=== PATIENT | male | born 1965 | race Caucasian/White ===

== ENCOUNTER 2025-01-16 16:27 | Emergency (ER) | payer OTHER, SELFPAY ==
[2025-01-16 16:30] VITALS: BP 147/109
[2025-01-16 16:57] LABS: % Basophils 0.5 % (0-2); % Eosinophils 1.8 % (0-6); % Immature Granulocytes 0.3 % (0-0.5); % Monocytes 10.1 % (1.7-9.3); % Neutrophils 61.3 % (42.2-75.2); Absolute Basophils 0.1 10^3/uL (0-0.2); Absolute Eosinophils 0.2 10^3/uL (0-0.7); Absolute Lymphocytes 2.4 10^3/uL (1.2-3.4); Absolute Neutrophils 5.7 10^3/uL (1.4-6.5); Hemoglobin 14.3 g/dL (13.0-18.0); Mean Corp Hgb Conc. 35.8 g/dL (33.0-37.0); Mean Corpuscular Hgb 30.9 pg (27.0-31.0); Mean Corpuscular Volume 86.4 fL (80.0-94.0); Mean Platelet Volume 9.7 fL (7.4-10.4); Nucleated Red Blood Cells % 0 % (-); Platelet Count 319 10^3/uL (130-400); Red Blood Cell Count 4.63 10^6/uL (4.70-6.10); Red Cell Dist. Width 12.7 % (11.5-14.5); Urine Albumin Negative (Neg - Trace); Urine Bilirubin Negative (Negative); Urine Character Clear (Clear); Urine Color Yellow; Urine Glucose Negative (Negative); Urine Ketone Negative (Negative); Urine Leukocyte Negative (Negative); Urine Nitrite Negative (Negative); Urine Occult Blood 2+ (Negative); Urine Urobilinogen Negative (Neg - 1+); White Blood Cell Count 9.4 10^3/uL (4.8-10.8)
[2025-01-16 17:11] LABS: ALT (SGPT) 32 U/L (0-50); AST (SGOT) 27 U/L (17-59); Albumin 4.1 g/dl (3.5-5.0); Alkaline Phosphatase 65 U/L (38-126); Blood Urea Nitrogen 16 mg/dl (9-20); Carbon Dioxide 27 mmol/L (22-30); Chloride 101 mmol/L (98-107); Glucose 178 mg/dl (70-99); Potassium 3.4 mmol/L (3.5-5.1); Sodium 139 mmol/L (135-145); Total Bilirubin 0.8 mg/dl (0.2-1.3); Total Protein 7.1 g/dl (6.3-8.2); eGFR > 60.00
--- NOTE | 2025-01-16 17:20 | ED.GENMED ---
History of Present Illness
General
Chief Complaint: Flank Pain
Source: patient
Exam Limitations: none
Time Seen by Provider: 01/16/25 17:13
Nursing documentation reviewed up to this point in time: agreed with
History of Present Illness
History of Present Illness:
59-year-old male with history of Hernandez, kidney stones, presents with severe right flank pain, which started an hour ago, he is moaning and groaning, denies fever or chills.
Past History
Past History
ED Past Medical History: Other (Fatty liver splenomegaly kidney stones)
ED Past Surgical History: Urological
Social History
Tobacco: Non-smoker
Alcohol: None
Drug: None
Personal:
Living: with family
Employment: Employed
Family History
Family History: Hypertension
Review of Systems
Review of Systems
Allergies reviewed?: Yes
All Other Systems: ROS reviewed and negative except as documented in HPI and ROS
Constitutional: Denies fever or chills
Respiratory: Denies trouble breathing
Cardiac: Denies chest pain
ABD/GI: Reports nausea; Denies abdominal pain, vomiting or diarrhea
: Reports flank pain (Right); Denies dysuria or difficulty voiding
Musculoskeletal: Reports no symptoms
Skin: Reports no symptoms
Neurological: Reports no symptoms
Phy Exam
Physical Exam
Physical Exam:
GENERAL: Acute distress due to right flank pain A&Ox3.
CONSTITUTIONAL: Afebrile.
EYES: clear, conjunctivae normal
ENMT: moist mucus membranes
RESPIRATORY: Regular respirations, nonlabored, lungs clear.
CARDIOVASCULAR: Regular rate and rhythm, no murmurs, no rubs.
GI: Soft, nontender, normal BS
MUSCULOSKELETAL: Moves with ease. Well perfused.
SKIN: Warm, dry, pale
PSYCH: Anxious mood and affect. Well kept, interactive and appropriate
NEUROLOGIC: Awake, alert and oriented. No focal neurological deficits
Course
Orders/Labs/Results
Orders:
Orders
01/16/25 16:48
Complete Blood Count/With Diff Urgent
Comprehensive Metabolic Panel Urgent
Urinalysis Reflex To Culture Urgent
Date Specimen was Collected: 01/16/25
Time Specimen was Collected: 16:35
Urine Microscopic Reflex Cult Urgent
01/16/25 17:20
0.9% Sodium Chloride 1000 ml [Nss] 1,000 ml IV BOLUS
HYDROmorphone [Dilaudid] 1 mg IV NOW STA
Ondansetron Injectable [Zofran] 4 mg IV NOW STA
01/16/25 18:05
Ketorolac [Toradol] 15 mg IV NOW STA
Tamsulosin [Flomax] 0.4 mg PO NOW STA
01/16/25 18:06
CT Abd/pel Without Iv Or Oral Urgent
Comment:
Reason For Exam: R flank pain
01/16/25 20:22
Ketorolac [Toradol] 15 mg IV NOW STA
01/16/25 20:30
Ondansetron Injectable [Zofran] 4 mg IV NOW STA
Abnormal Lab Results
01/16/25
16:48
RBC 4.63 L 10^6/uL
(4.70-6.10)
Absolute Monos (auto) 1.0 H 10^3/uL
(0.1-0.6)
Monocytes % 10.1 H %
(1.7-9.3)
Potassium 3.4 L mmol/L
(3.5-5.1)
Glucose 178 H mg/dl
(70-99)
Calcium 11.0 H mg/dl
(8.4-10.2)
Ur Occult Blood Reflex 2+ A
(Negative)
Urine RBC 11-15 A /HPF
(0-2)
Urine Bacteria (Reflex) Few A
(Negative)
01/16/25 16:48
01/16/25 16:48
Vital Signs
Initial and Last Documented VS:
Initial Vital Signs
Temp Pulse Resp BP Pulse Ox
97.4 F 61 16 147/109 96
01/16/25 16:30 01/16/25 16:30 01/16/25 16:30 01/16/25 16:30 01/16/25 16:30
Last Documented Vital Signs
Temp Pulse Resp BP Pulse Ox
97.4 F 76 15 148/75 97
01/16/25 16:30 01/16/25 21:15 01/16/25 21:15 01/16/25 21:15 01/16/25 21:15
MDM/Problems Addressed
Differential Diagnosis Includes:
Kidney stone, URI, pyelonephritis
MDM/Problems Addressed:
59-year-old male with history of Hernandez, kidney stones, presents with severe right flank pain, which started an hour ago, he is moaning and groaning, denies fever or chills.
6:00 PM:
CBC, CMP unremarkable
Urinalysis with no infection
8:[address] Abd/pelvis radiology report read: IMPRESSION:
2 mm calculus at the right ureterovesical junction with associated mild right hydroureteronephrosis.
Good relief after pain medication, patient states pain is starting to come back again
#2 dose Toradol IV given
Rx for hydrocodone and Zofran sent to pt pharmacy
Pt pain 3-4/10, stable for discharge
*Critical Care Note
Total Time (30-74mins, 75-104mins- exclusive of procedures): Not Applicable
ED Attending Note
-
Portions of this chart may have been created with voice recognition software.� Occasional wrong word or��sound alike� substitutions may have occurred due to the inherent limitations of voice recognition software.
Discharge Plan
Departure
Patient Disposition: Home (Routine Discharge)
Date of Disposition: 01/16/25
Time of Disposition: 21:05
Patient with high blood pressure during this ER visit?: No
Condition: Fair
Discharge Problem:
Calculus of distal left ureter
Instructions: Kidney Stones (DC), How to Strain Your Urine, Narcotic Pain Medication
Prescriptions:
New
tamsulosin [Flomax] 0.4 mg capsule
0.4 mg PO DAILY Qty: 4 0RF
hydrocodone-acetaminophen 5-325 mg tablet
1 tab PO Q4H PRN (Reason: Pain) Qty: 10 0RF
ondansetron 4 mg tablet,disintegrating
4 mg PO Q8H PRN (Reason: nausea and vomiting) 3 Days Qty: 10 0RF
No Action
multivitamin [Multi-Day] 1 EACH tablet
1 ea PO DAILY
[id number]-[id number]-kdvkkat-ast [krill oil] 1 EACH capsule
2,200 mg PO DAILY
Vitamin D
1,000 units PO DAILY
Referrals:
Anibal Dejesus MD [Active] - Call in 1-3 days for appt
Harriet Moss PA-C [Family Provider] -
Activity Restrictions/Additional Instructions:
As we discussed, the 2 mm stone is very low and should drop into the bladder soon.
Ibuprofen 600 mg every 6 hours for mild to moderate pain and use the Hydrocodone if needed for worse pain. Do not drive for six hours after taking the Hydrocodone.
Strain your urine and if you catch the stone, take it with you to your Urology appointment.
Return here immediately for fever, vomiting, worsening pain or feeling sicker in any way.
I sent a prescription to your pharmacy for Flomax to take daily for the next 4 days and for Hydrocodone (Vicodin or [place]) as needed for worse pain.
Interventions
Interventions:
*Risk Screen - Suicide Last Done: 01/16/25 16:30
*General Assessment Last Done: 01/16/25 16:30
*Neglect/Abuse Screening Last Done: 01/16/25 16:30
*ED- Fall Risk Assessment Last Done: 01/16/25 16:30
*ED COVID-19 Vaccine History Last Done: 01/16/25 16:30
*Nursing Disposition Last Done: 01/16/25 21:17
LU-Rjgxar-Bstgsdtqub Assessment Last Done: 01/16/25 17:40
ED-Male Genitourinary Assessment Last Done: 01/16/25 17:40
Discharge Date and Time
Discharge Date/Time: 01/16/25 21:18
Print Language: MALDIVIAN
[2025-01-16 17:23] LABS: Urine Bacteria Few (Negative); Urine White Cell 0-2 /HPF (0-5)
[2025-01-16] MEDS: ZOFRAN 4 MG IV ×2 (17:34→20:35)
[2025-01-16] MEDS: NSS 1000 IV (17:34)
[2025-01-16] MEDS: DILAUDID 1 MG IV (17:36)
[2025-01-16 17:40] VITALS: BMI 36.4
[2025-01-16] MEDS: FLOMAX 0.4 MG PO (18:09)
[2025-01-16] MEDS: TORADOL 15 MG IV ×2 (18:10→20:25)
[2025-01-16 21:15] VITALS: BP 148/75
== END 2025-01-16 21:18 | disposition home or self-care (01) ==
LOC: EMR 16:27
PROVIDERS: Student in an Organized Health Care Education/Training Program; EMERGENCY PHYSICIAN Emergency Medicine; FAMILY PHYSICIAN Student in an Organized Health Care Education/Training Program
DX: N13.2 Hydronephrosis with renal and ureteral calculous obstruction (principal)
CPT/HCPCS: 99284; 96374; 96375 ×2; 96376 ×2; 74176; 80053; 81003; 81015; 85025

== ENCOUNTER → 2025-01-24 14:07 | Outpatient (REF) | payer OTHER, SELFPAY | LOC: HWRAD 14:07 | PROVIDERS: ATTENDING PHYSICIAN Surgery; FAMILY PHYSICIAN Student in an Organized Health Care Education/Training Program | DX: N43.3 Hydrocele, unspecified (principal); Z87.442 Personal history of urinary calculi | CPT/HCPCS: 76775; 76870; 93976 ==